=== PATIENT | male | born 1965 | race Caucasian/White ===

== ENCOUNTER 2020-04-02 08:57 | Outpatient (REF) | payer BC, SELFPAY ==
[2020-04-02 11:06] LABS: Alanine Aminotransferase 133 U/L (0-40); Anion Gap 13 (12-20); Aspartate Amino Transferase 88 U/L (5-37); Blood Urea Nitrogen 9 mg/dL (9-16); Carbon Dioxide 25 mmol/L (22-29); Chloride 105 mmol/L (96-108); Estimated Glomerular Filt Rate > 60; Potassium 4.3 mmol/L (3.3-5.1); Sodium 139 mmol/L (135-145)
== END 2020-04-02 08:58 | disposition home or self-care (01) ==
LOC: HO.10HDL 08:57
PROVIDERS: Visit Provider Family Medicine
DX: I10 Essential (primary) hypertension (principal); E78.00 Pure hypercholesterolemia, unspecified; Z79.899 Other long term (current) drug therapy
CPT/HCPCS: 36415; 80051; 82550; 82565; 84450; 84460; 84520

== ENCOUNTER 2020-05-08 08:25 | Outpatient (REF) | payer BC, SELFPAY ==
[2020-05-08 11:09] LABS: Alanine Aminotransferase 99 U/L (0-40)
== END 2020-05-08 08:26 | disposition home or self-care (01) ==
LOC: HO.10HDL 08:25
PROVIDERS: Visit Provider Family Medicine
DX: Z13.89 Encounter for screening for other disorder (principal)
CPT/HCPCS: 36415; 82550; 84460

== ENCOUNTER 2020-08-25 10:49 | Day surgery (SDC) | payer BC, SELFPAY ==
[2020-08-18 11:32] VITALS: BMI 29.9
--- NOTE | 2020-08-21 08:21 | P.CONAN_ITS ---
Documented by User: Niyah Steen 08/21/20 08:21 HPI - Anesthesia Eval Consult details Narrative: 55yo M for Colonoscopy [facility] Past Medical History Medical History COVID-19 vaccine administered Elevated cholesterol HTN (hypertension) Surgical History Surgical History H/O colonoscopy Social History Social History Are you a primary childcare center director to a significant other at home: No Do you presently have visiting nurse or other home services: No Patient Tobacco Use Status: Former Tobacco user Quit Date: 2000 Tobacco use type: Cigarette Use of substances other than those prescribed or required for medical reasons: No Have you been hit, kicked, punched, or otherwise hurt by someone within the past year? If so, by whom?: No Are you DNR?: No Advance Directives: No Advance Directives Information Provided: Yes Advance Directives on File: No Recently lost weight without trying: No Eating poorly because of decreased appetite: No Nutrition Risks: No Nutritional Risk Poor oral hygiene: No Meds Allergies Allergy/AdvReac Type Severity Reaction Status Date / Time No Known Allergies Allergy Verified 08/25/20 11:15 Home Medications Medication Instructions Recorded Confirmed Last Taken Type atorvastatin 20 mg PO DAILY 08/18/20 08/18/20 Unknown History lisinopril 20 mg PO BEDTIME 08/18/20 08/25/20 Unknown History Exam Exam Date and Time: August 21, 2020820 Height,Weight and Vital Signs: Height 5 ft 11 in Weight 97.522 kg Assessment and Plan Assessment Anesthesia Assessment: Chart Reviewed Documented by User: Inés Cleveland 08/25/20 12:17 [facility] Past Medical History Medical History COVID-19 vaccine administered Elevated cholesterol HTN (hypertension) Surgical History Surgical History H/O colonoscopy Social History Social History Are you a primary childcare center director to a significant other at home: No Do you presently have visiting nurse or other home services: No Patient Tobacco Use Status: Former Tobacco user Quit Date: 2000 Tobacco use type: Cigarette Use of substances other than those prescribed or required for medical reasons: No Have you been hit, kicked, punched, or otherwise hurt by someone within the past year? If so, by whom?: No Are you DNR?: No Advance Directives: No Advance Directives Information Provided: Yes Advance Directives on File: No Recently lost weight without trying: No Eating poorly because of decreased appetite: No Nutrition Risks: No Nutritional Risk Poor oral hygiene: No Meds Allergies Allergy/AdvReac Type Severity Reaction Status Date / Time No Known Allergies Allergy Verified 08/25/20 11:15 Home Medications Medication Instructions Recorded Confirmed Last Taken Type atorvastatin 20 mg PO DAILY 08/18/20 08/18/20 Unknown History lisinopril 20 mg PO BEDTIME 08/18/20 08/25/20 Unknown History Exam Airway Mallampati Class: II TM Dist: >3cm Neck ROM: Full Loose/Missing/Broken Teeth: No Heart: RRR Lungs: CTA Assessment and Plan Assessment Anesthesia Assessment: Anesthesia Plan Discussed and Chart Reviewed Final Anesthetic Review NPO: Yes ASA Class: II Final Preanesthetic Review: Meds/Allgs Chart Reviewed, Consent Obtained/Reviewed and Anes Risks/Benef Reviewed Patient Risk: Low Procedure Risk: Low Anesthetic Plan Anesthetic Plan: MAC: Disposition: Standard PACU
[2020-08-25 11:25] VITALS: BP 141/93; PULSE 88; RESP 16; TEMP 36.6; O2SAT 95
[2020-08-25] MEDS: Lactated Ringers 1,000 ML 100 ML IVCONT (11:36)
--- NOTE | 2020-08-25 12:18 | MHC.SHP ---
Pre-Procedural Eval Section A Date of Service: 08/25/20 The patient is an INPATIENT: No Changes since office visit: No Cold of Flu in the past 2 weeks, No New Medical Problems, No Changes in Medication and No Patient answered all questions The History & Physical has been completed within 30 days and I have reviewed it.: Yes Section B Chief Complaint: screening Allergies: Allergies Allergy/AdvReac Type Severity Reaction Status Date / Time No Known Allergies Allergy Verified 08/25/20 11:15 Plan I have reviewed the history and physical and performed a pertinent physical examination on my patient. No changes have occurred unless specified.
[2020-08-25 12:42] VITALS: BP 124/83; PULSE 93; RESP 18; TEMP 36.3; O2SAT 95
--- NOTE | 2020-08-25 12:52 | PM.OP ---
Brief Operative Note Date of Service: 08/25/20 Pre-op diagnosis: screening Post-op diagnosis: same Procedure: colonoscopy Surgeon: Jaswant Meadows Anesthesia: MAC Was an New Car Make Ready Mechanic used for this Procedure?: No Estimated blood loss (mL): 0 Pathology: none sent Condition: stable Disposition: PACU
[2020-08-25 12:57] VITALS: BP 130/87; PULSE 74; RESP 20; TEMP 36.3; O2SAT 97
--- NOTE | 2020-08-25 12:59 | OP_ITS ---
SURGEON: Jaswant Meadows MD INDICATIONS: Colon cancer screening and prior history of adenomatous colon polyps. PREOPERATIVE DIAGNOSIS: POSTOPERATIVE DIAGNOSIS: PROCEDURE PERFORMED: Colonoscopy to the terminal ileum. ESTIMATED BLOOD LOSS: COMPLICATIONS: ANESTHESIA: Monitored anesthesia care. ASSISTANTS: SPECIMENS: DESCRIPTION OF PROCEDURE: History and physical performed. The risks and benefits of the procedure were explained to the patient. Informed consent was obtained. The patient was placed in the left lateral decubitus position. A digital rectal exam was performed and was found to be normal. The Olympus pediatric video colonoscope was introduced into the rectum and advanced to the cecum without difficulty. The cecum was identified by transillumination, palpation, and identification of ileocecal valve. Examination was performed. The scope was removed. He tolerated the procedure well and was taken to recovery unit in stable condition. FINDINGS: The terminal ileum was normal. The visualized colonic mucosa was normal. The quality of the prep was good. No polyps were identified. Retroflexed examination showed some small internal hemorrhoids. There was some mild sigmoid diverticulosis. IMPRESSION: Normal colonoscopy. RECOMMENDATIONS: 1. Follow up as needed. 2. Repeat colonoscopy is recommended in 10 years for average risk individuals. MD DOUGLAS Guerrero/DAWIT / [id number]
== END 2020-08-25 13:19 | disposition home or self-care (01) ==
PROVIDERS: PCP Family Medicine; Visit Provider Internal Medicine Gastroenterology
PROC: 0DJD8ZZ Inspection of Lower Intestinal Tract, Via Natural or Artificial Opening Endoscopic (ICD-10-PCS; CPT 45378; principal; 2020-08-25 12:20)
DX: Z12.11 Encounter for screening for malignant neoplasm of colon (principal); Z86.010 Personal history of colon polyps; K57.30 Diverticulosis of large intestine without perforation or abscess without bleeding; K64.8 Other hemorrhoids; I10 Essential (primary) hypertension; E78.00 Pure hypercholesterolemia, unspecified; Z79.899 Other long term (current) drug therapy; Z87.891 Personal history of nicotine dependence
CPT/HCPCS: 45378

== ENCOUNTER 2020-12-11 09:13 | Outpatient (REF) | payer BC, SELFPAY ==
[2020-12-11 11:05] LABS: Alanine Aminotransferase 130 U/L (0-40); Anion Gap 12 (12-20); Aspartate Amino Transferase 80 U/L (5-37); Blood Urea Nitrogen 7 mg/dL (9-16); Carbon Dioxide 24 mmol/L (22-29); Chloride 108 mmol/L (96-108); Estimated Glomerular Filt Rate > 60; Sodium 140 mmol/L (135-145)
== END 2020-12-11 09:14 | disposition home or self-care (01) ==
LOC: HO.10HDL 09:13
PROVIDERS: Visit Provider Family Medicine
DX: I10 Essential (primary) hypertension (principal); E78.00 Pure hypercholesterolemia, unspecified; Z79.899 Other long term (current) drug therapy
CPT/HCPCS: 36415; 80051; 82550; 82565; 84450; 84460; 84520

== ENCOUNTER 2021-04-23 08:54 | Outpatient (REF) | payer BC, SELFPAY ==
[2021-04-23 12:19] LABS: Estimated Average Glucose 100 mg/dL; Hemoglobin A1c % 5.1 %
[2021-04-23 12:27] LABS: Alanine Aminotransferase 106 U/L (0-40); Albumin Level 4.4 g/dL (3.5-5.0); Alkaline Phosphatase 70 U/L (39-117); Aspartate Amino Transferase 72 U/L (5-37); Bilirubin Direct 0.3 mg/dL (0.0-0.5); Cholesterol 246 mg/dL; Glucose Fasting 95 mg/dL (60-99); HDL Cholesterol 41 mg/dL; LDL Cholesterol Calculated 169 mg/dl; Total Protein 6.8 g/dL (6.5-8.0); Triglycerides 181 mg/dL
== END 2021-04-23 08:55 | disposition home or self-care (01) ==
LOC: HO.10HDL 08:54
PROVIDERS: Visit Provider Family Medicine
DX: K75.81 Nonalcoholic steatohepatitis (NASH) (principal); E78.00 Pure hypercholesterolemia, unspecified; Z83.3 Family history of diabetes mellitus
CPT/HCPCS: 36415; 80061; 80076; 82947; 83036

== ENCOUNTER 2021-10-15 08:49 | Outpatient (REF) | payer BC, SELFPAY ==
[2021-10-15 11:04] LABS: Alanine Aminotransferase 98 U/L (0-40); Albumin Level 4.5 g/dL (3.5-5.0); Alkaline Phosphatase 71 U/L (39-117); Anion Gap 16 (12-20); Aspartate Amino Transferase 63 U/L (5-37); Bilirubin Direct 0.3 mg/dL (0.0-0.5); Bilirubin Total 0.8 mg/dL (0.0-1.0); Blood Urea Nitrogen 7 mg/dL (9-16); Carbon Dioxide 24 mmol/L (22-29); Chloride 104 mmol/L (96-108); Estimated Glomerular Filt Rate > 60; Potassium 4.3 mmol/L (3.3-5.1); Sodium 140 mmol/L (135-145); Total Protein 6.7 g/dL (6.5-8.0)
== END 2021-10-15 08:50 | disposition home or self-care (01) ==
LOC: HO.10HDL 08:49
PROVIDERS: Visit Provider Family Medicine
DX: I10 Essential (primary) hypertension (principal); K75.81 Nonalcoholic steatohepatitis (NASH)
CPT/HCPCS: 36415; 80051; 80076; 82565; 84520

== ENCOUNTER 2022-04-20 08:46 | Outpatient (REF) | payer BC, SELFPAY ==
[2022-04-20 10:47] LABS: Alanine Aminotransferase 43 U/L (0-40); Anion Gap 11 (12-20); Aspartate Amino Transferase 36 U/L (5-37); Blood Urea Nitrogen 8 mg/dL (9-16); Carbon Dioxide 27 mmol/L (22-29); Chloride 107 mmol/L (96-108); Estimated Glomerular Filt Rate > 60; Potassium 4.3 mmol/L (3.3-5.1); Sodium 141 mmol/L (135-145)
== END 2022-04-20 08:47 | disposition home or self-care (01) ==
LOC: HO.10HDL 08:46
PROVIDERS: Visit Provider Internal Medicine
DX: I10 Essential (primary) hypertension (principal); E78.00 Pure hypercholesterolemia, unspecified; K75.81 Nonalcoholic steatohepatitis (NASH); Z79.899 Other long term (current) drug therapy
CPT/HCPCS: 36415; 80051; 82550; 82565; 84450; 84460; 84520

== ENCOUNTER 2022-11-24 09:13 | Outpatient (REF) | payer BC, SELFPAY | END 2022-11-24 09:14 | disposition home or self-care (01) | LOC: HO.LAB 09:13 | PROVIDERS: PCP Family Medicine; Visit Provider Family Medicine | DX: I10 Essential (primary) hypertension (principal); K75.81 Nonalcoholic steatohepatitis (NASH) | CPT/HCPCS: 36415; 80051; 82565; 84450; 84460; 84520 ==

== ENCOUNTER 2023-04-24 08:38 | Outpatient (REF) | payer BC, SELFPAY ==
[2023-04-24 11:47] LABS: Alanine Aminotransferase 64 U/L (0-40); Anion Gap 11 (12-20); Aspartate Amino Transferase 41 U/L (5-37); Blood Urea Nitrogen 10 mg/dL (9-16); Carbon Dioxide 25 mmol/L (22-29); Chloride 108 mmol/L (96-108); Cholesterol 215 mg/dL (<200); Estimated Glomerular Filt Rate > 60; HDL Cholesterol 37 mg/dL (>40); LDL Cholesterol Calculated 151 mg/dL (<100); Potassium 3.9 mmol/L (3.3-5.1); Sodium 140 mmol/L (135-145); Triglycerides 137 mg/dL (<150)
== END 2023-04-24 08:39 | disposition home or self-care (01) ==
LOC: HO.10HDL 08:38
PROVIDERS: Visit Provider Family Medicine
DX: I10 Essential (primary) hypertension (principal); E78.00 Pure hypercholesterolemia, unspecified; Z79.899 Other long term (current) drug therapy
CPT/HCPCS: 36415; 80051; 80061; 82550; 82565; 84450; 84460; 84520

== ENCOUNTER 2023-08-11 08:18 | Outpatient (REF) | payer BC, SELFPAY ==
[2023-08-11 11:17] LABS: Alanine Aminotransferase 54 U/L (0-40); Aspartate Amino Transferase 43 U/L (5-37); Cholesterol 147 mg/dL (<200); HDL Cholesterol 44 mg/dL (>40); LDL Cholesterol Calculated 83 mg/dL (<100); Triglycerides 104 mg/dL (<150)
[2023-08-26 19:29] LABS: FIB-ALT 43 U/L (9-46); FIB-Alpha-2-Macroglobulin 211 mg/dL (106-279); FIB-Apolipoprotein A1 166 mg/dL (94-176); FIB-GGT 57 U/L (3-85); FIB-Haptoglobin 184 mg/dL (43-212); FIB-Total Bilirubin 1.1 mg/dL (0.2-1.2); Liver Fibrosis Score 0.38; Liver Fibrosis Stage F1-F2; Nec Inflam Act Grade A0-A1; Nec Inflam Act Score 0.26
== END 2023-08-11 08:19 | disposition home or self-care (01) ==
LOC: HO.10HDL 08:18
PROVIDERS: Visit Provider Family Medicine
DX: E78.00 Pure hypercholesterolemia, unspecified (principal); Z79.899 Other long term (current) drug therapy; K75.81 Nonalcoholic steatohepatitis (NASH)
CPT/HCPCS: 36415; 80061; 81596; 82550; 84450; 84460

== ENCOUNTER 2024-02-08 08:46 | Outpatient (REF) | payer BC, SELFPAY ==
[2024-02-08 10:44] LABS: Estimated Average Glucose 100 mg/dL; Hemoglobin A1C 130.8068 umol/L; Hemoglobin A1c % 5.1 % (<6.0); Total Hemoglobin (HGBA1C) 4096.0385 umol/L
[2024-02-08 10:55] LABS: Alanine Aminotransferase 62 U/L (0-40); Anion Gap 11 (12-20); Aspartate Amino Transferase 46 U/L (5-37); Blood Urea Nitrogen 10 mg/dL (9-16); Carbon Dioxide 29 mmol/L (22-29); Chloride 107 mmol/L (96-108); Estimated Glomerular Filt Rate > 60; Glucose Fasting 92 mg/dL (60-99); Potassium 4.1 mmol/L (3.3-5.1); Sodium 143 mmol/L (135-145)
[2024-02-08 11:06] LABS: Prostate Specific Antigen Scr 0.36 ng/mL (<0.05-4.0)
== END 2024-02-08 08:47 | disposition home or self-care (01) ==
LOC: HO.10HDL 08:46
PROVIDERS: Visit Provider Family Medicine
DX: Z12.5 Encounter for screening for malignant neoplasm of prostate (principal); I10 Essential (primary) hypertension; K75.81 Nonalcoholic steatohepatitis (NASH); R73.9 Hyperglycemia, unspecified; R35.1 Nocturia
CPT/HCPCS: 36415; 80051; 82565; 82947; 83036; 84153; 84450; 84460; 84520